=== PATIENT | male | born 1995 | race Caucasian/White ===

== ENCOUNTER → 2018-01-11 | Outpatient (CLI) | payer BC ==
--- NOTE | 2018-01-11 11:54 | DIAGNOSTIC IMAGING REPORT ---
ABDOMEN COMPLETE (US) CLINICAL HISTORY: 22 years-old Male with ELEVATED LFT'S. Acutely elevated LFTs TECHNIQUE: Multiple real time sonographic images of the abdomen were obtained assessing hendrickson-scale appearance. FINDINGS: PANCREAS: The pancreas is partially obscured by bowel gas. The visualized portions of the pancreas are normal without focal lesion or pancreatic duct dilatation. LIVER: The liver demonstrates a homogeneous parenchymal echotexture. There is no intrahepatic bile duct dilation, focal lesion, or contour nodularity. There is no ascites. GALLBLADDER: The gallbladder is fluid-filled without cholelithiasis, wall thickening, or pericholecystic fluid. Negative sonographic Kimball's sign. The common bile duct measures 0.3 cm. RIGHT KIDNEY: The right kidney measures 11.2 cm. The parenchymal echotexture and cortical thickness are normal. No nephrolithiasis or hydronephrosis. LEFT KIDNEY: The left kidney measures 11.4 cm. The parenchymal echotexture and cortical thickness are normal. No nephrolithiasis or hydronephrosis. SPLEEN: The spleen measures 11.4 cm and is normal in echotexture. No focal lesions are identified. VASCULATURE: The visualized aorta and inferior vena cava are sub-visualized although appear normal as seen. IMPRESSION: Unremarkable sonographic exam of the abdomen The above report was generated using voice recognition software. It may contain grammatical, syntax or spelling errors. Electronically signed by: Donnie Chavez M.D. 01/11/2018 11:53 AM Dictated Date/Time: 01/11/2018 11:51 AM
[2018-01-11 12:54] LABS: ALBUMIN 4.4 gm/dl (3.4-5.0); TOTAL PROTEIN 7.6 gm/dl (6.4-8.2)
[2018-01-11 16:37] LABS: HEP C IGG 13 YRS+OLDER_RFLX NEG (NEG)
[2018-01-12 06:27] LABS: HEPATITIS A IGM TC 51813E NON-REACTIVE (NON-REACTIVE); HEPATITIS B CORE IGM TC51854R NON-REACTIVE (NON-REACTIVE)
== END | disposition home or self-care (01) ==
LOC: C.ULTR 11:04
PROVIDERS: ATTEND Family Medicine
DX: R79.89 Other specified abnormal findings of blood chemistry (principal)